=== PATIENT | female | born 1950 | race Caucasian/White ===

== ENCOUNTER 2021-09-20 06:42 | Day surgery (SDC) | payer OTHER ==
[2021-09-20] MEDS ORDERED: Ringers Lactate 1,000 ML IV ONE (07:02)
[2021-09-20] MEDS ORDERED: propofoL 200 MG/20 ML VIAL IV ONE (07:28)
[2021-09-20] MEDS ORDERED: LIDOCAINE 1% MPF 5 ML VIAL ONE (07:28)
--- NOTE | 2021-09-20 08:07 | ENDO RPT ---
[address], [address] COLONOSCOPY PROCEDURE REPORT EXAM DATE: 09/20/2021 PATIENT NAME: Lenore Ho MR #: [id number] BIRTHDATE: 1950 ATTENDING: Trenton Moore MD STATUS: outpatient CHIEF [employer] DIVISION: Milvia Rubin RN and Ana Gomes INDICATIONS: The patient is a 71 yr old Female here for a colonoscopy due to history of polyps, abdominal pain, and anal incontinence PROCEDURE PERFORMED: Colonoscopy and Colonoscopy with biopsy - cold polypectomy MEDICATIONS: Per Anesthesia. ESTIMATED BLOOD LOSS: None CONSENT: The patient understands the risks and benefits of the procedure and understands that these risks include, but are not limited to: sedation, allergic reaction, infection, perforation and/or bleeding. Alternative means of evaluation and treatment include, among others: physical exam, x-rays, and/or surgical intervention. The patient elects to proceed with this endoscopic procedure. DESCRIPTION OF PROCEDURE: During intra-op preparation period all mechanical medical equipment was checked for proper function. Hand hygiene and appropriate measures for infection prevention was taken. Procedure, possible complications, alternatives including, but not limited to possibility of bleeding, perforation, tear, infection, sepsis, need for surgery, need for blood transfusion, were explained to the patient. After the risks, benefits and alternatives of the procedure were thoroughly explained, Informed consent was verified, confirmed and timeout was successfully executed by the treatment team. The patient was placed in the left lateral position. A digital rectal exam was performed and revealed decreased sphincter tone. After appropriate level of anesthesia, the scope was passed. The EC-[id number] ([id number]) endoscope was introduced through the anus and advanced to the cecum, which was identified by transillumination from the light source, the appendix, and the ileocecal valve. The quality of the prep was fair. The instrument was then slowly withdrawn as the colon was fully examined. Scope withdrawal time was . COLON FINDINGS: Multiple smooth sessile polyps measuring 3 mm in size were found in the descending colon and proximal descending colon. A polypectomy was performed using hot forceps. The resection was complete, the polyp tissue was completely retrieved and sent to histology. Retroflexed views revealed no abnormalities. The scope was then completely withdrawn from the patient and the procedure terminated. ADVERSE EVENTS: There were no complications. IMPRESSIONS: 1. Multiple sessile polyps measuring 3 mm in size were found in the descending colon and proximal descending colon; polypectomy was performed in a piecemeal fashion using hot forceps 2. External hemorrhoids 3. Internal hemorrhoids 4. Decreased sphincter tone RECOMMENDATIONS: 1. follow-up: office 1 week(s) 2. await biopsy results RECALL: for Colonoscopy, pending biopsy results. Trenton Moore MD eSigned: Trenton Moore MD 09/20/2021 8:07 AM cc: Arcelia Novak M.D. CPT CODES: ICD9 CODES: PATIENT NAME: Lenore Ho MR#: [id number]
[2021-09-20] MEDS ORDERED: GLYCOPYRROLATE 0.2 MG/ML SYR ONE (08:14)
[2021-09-20 08:35] VITALS: O2SAT 100
[2021-09-20 08:37] VITALS: BP 144/89; TEMP 96.9
== END 2021-09-20 08:50 | disposition home or self-care (01) ==
LOC: OR 06:42
PROVIDERS: ATTEND Surgery
PROC: 0DBM8ZX Excision of Descending Colon, Via Natural or Artificial Opening Endoscopic, Diagnostic (ICD-10-PCS; principal; 2021-09-20 07:30)
DX: R10.9 Unspecified abdominal pain (principal); R15.9 Full incontinence of feces; Z86.010 Personal history of colon polyps; Z20.822 Contact with and (suspected) exposure to COVID-19; K64.4 Residual hemorrhoidal skin tags; K64.8 Other hemorrhoids; K63.5 Polyp of colon
CPT/HCPCS: 45384; 88305; U0003; J2704; J7120